=== PATIENT | female | born 1965 | race African-American/Black ===

== ENCOUNTER 2022-01-05 14:54 | Emergency (ER) | payer OTHER ==
[2022-01-05] MEDS ORDERED: SODIUM CHLORIDE 0.9% 1,000 ML IV STA ×3 (15:12→22:42)
--- NOTE | 2022-01-05 15:14 | ED Physician Documentation ---
PD HPI ALTERED MENTAL STATUS - Stated complaint Stated Complaint: WEAKNESS/CONFUSION - Chief complaint Chief Complaint: Neuro - History obtained from History obtained from: Patient, Family - Additional information Additional information: This is a 56-year-old woman who presents accompanied by her by private vehicle at the behest of her oncologist at the [place] [facility]. She has a history of stage IV pancreatic cancer. She was on about 10 months of chemotherapy in [place] and recently moved up here about 3 weeks ago to transfer care to the [facility]. She has a lot of abdominal and back pain, and her pain medication was recently increased. She had been taking long-acting morphine, 30 mg 4 times a day, now is taking 6 tablets a day with as needed oxycodone. This change took place about a week ago. Starting a few days ago she has been altered, clumsy, with difficulty walking and difficulty holding things. Has been presumed to this was related to the increase in morphine. Most of the history is from the as the patient is not very responsive with hard to hear mumbling answers. Review of Systems Unable to obtain: Confused PD PAST MEDICAL HISTORY - Allergies Allergies/Adverse Reactions: Allergies Allergy/AdvReac Type Severity Reaction Status Date / Time No Known Drug Allergies Allergy Verified 01/05/22 15:10 PD ED PE NORMAL - Vitals Vital signs reviewed: Yes (She is tachycardic) - General General: Other (She is alert and oriented to person and knows she is in the hospital but otherwise seems confused. Keeping her eyes closed and somnolent for the most part.) - HEENT HEENT: EOMI (She does have scleral icterus With midpoint pupils. They are reactive.), Other (Dry mucous membranes) - Neck Neck: Supple, no meningeal sign, No bony TTP - Cardiac Cardiac: No murmur, Other (Tachycardic but regular without murmur) - Respiratory Respiratory: No respiratory distress, Clear bilaterally - Abdomen Abdomen: Normal bowel sounds, Soft, Other (Quite tender especially in the upper abdomen without surgical signs) - Back Back: No CVA TTP, No spinal TTP - Derm Derm: Normal color, Warm and dry - Neuro Neuro: Other (She is able to follow commands in all 4 extremities but her strength is poor. It all seems symmetric though. She is not strong enough to check [id number] testing.) Eye Opening: To Voice Motor: Obeys Commands Verbal: Confused GCS Score: 13 Results - Vitals Vitals: Vital Signs - 24 hr 01/05/22 01/05/22 01/05/22 15:05 15:32 16:03 Temperature 37.2 C 38.1 C H Heart Rate 125 H 125 H 116 H Respiratory 20 20 16 Rate Blood Pressure 128/67 131/65 H 131/65 H O2 Saturation 95 95 98 01/05/22 01/05/22 01/05/22 16:30 17:00 17:30 Temperature 38.5 C H Heart Rate 111 H 115 H 112 H Respiratory 16 20 19 Rate Blood Pressure 115/60 117/64 120/106 H O2 Saturation 96 97 97 01/05/22 01/05/22 01/05/22 17:55 18:30 19:00 Temperature 37.6 C Heart Rate 101 H 100 102 H Respiratory 17 17 16 Rate Blood Pressure 116/81 H 102/61 101/71 O2 Saturation 97 96 97 01/05/22 01/05/22 01/05/22 20:12 21:58 22:51 Temperature Heart Rate 95 85 81 Respiratory 16 15 12 Rate Blood Pressure 93/61 82/72 L 91/56 L O2 Saturation 97 95 94 01/05/22 23:44 Temperature Heart Rate 82 Respiratory 18 Rate Blood Pressure 118/75 O2 Saturation 95 Oxygen O2 Source Room air - EKG (time done) 1535 Rate: Rate (enter#) (119) Rhythm: Sinus tachycardia [place]: Normal Intervals: Normal [place] QRS: LVH Ischemia: Non specific changes. No: ST elevation c/w ischemia - Labs Labs: Microbiology 01/05/22 16:46 Blood Culture - Preliminary Blood 01/05/22 15:21 Blood Culture (PCR) - Final Blood - Right Port 01/05/22 15:21 Blood Culture - Preliminary Blood - Right Port Laboratory Tests 01/05/22 01/05/22 01/05/22 15:21 15:21 15:21 WBC 15.5 H RBC 2.96 L Hgb 8.2 L Hct 24.7 L MCV 83.4 MCH 27.7 MCHC 33.2 RDW 16.4 H Plt Count 102 L MPV 11.3 H Neut # (Auto) Not Reportable Lymph # (Auto) Not Reportable [place] # (Auto) Not Reportable Eos # (Auto) Not Reportable Baso # (Auto) Not Reportable Absolute Nucleated RBC Not Reportable Total Counted 100 Band Neuts % (Manual) 13 H Abnorm Lymph % (Manual) 0 Metamyelocytes % 1 H Nucleated RBC % Not Reportable Neutrophils # (Manual) 14.1 H Lymphocytes # (Manual) 0.6 L Monocytes # (Manual) 0.6 Eosinophils # (Manual) 0.0 Basophils # (Manual) 0.0 Differential Comment MANUAL DIFFERENTIAL Manual Slide Review Indicated Platelet Estimate DECREASED (<130,000) Platelet Morphology NORMAL APPEARANCE RBC Morph Micro Appear 1+ HYPOCHROMASIA PT 15.0 H INR 1.4 H VBG pH VBG pCO2 VBG pO2 VBG HCO3 VBG Total CO2 VBG O2 Saturation VBG Base Excess Sodium 136 Potassium 3.1 L Chloride 100 L Carbon Dioxide 22 Anion Gap 14.0 H BUN 27 H Creatinine 0.7 Estimated GFR (MDRD) 104 Glucose 165 H Lactic Acid Calcium 8.6 Magnesium 1.8 Total Bilirubin 6.3 H AST 198 H ALT 136 H Alkaline Phosphatase 552 H Total Protein 6.5 L Albumin 2.3 L Globulin 4.2 Albumin/Globulin Ratio 0.5 L Lipase 15 L Urine Color Urine Clarity Urine pH Ur Specific [place] Urine Protein Urine Glucose (UA) Urine Ketones Urine Occult Blood Urine Nitrite Urine Bilirubin Urine Urobilinogen Ur Leukocyte Esterase Urine RBC Urine WBC Ur Squamous Epith Cells Urine Bacteria Ur Microscopic Review Urine Culture Comments Nasal Adenovirus (PCR) Nasal B. parapertussis DNA (PCR) Nasal Coronavir 229E PCR Nasal Coronavir HKU1 PCR Nasal Coronavir NL63 PCR Nasal Coronavir OC43 PCR Nasal Enterovir/Rhinovir PCR Nasal Influenza B PCR Nasal Influenza A PCR Nasal Parainfluen 1 PCR Nasal Parainfluen 2 PCR Nasal Parainfluen 3 PCR Nasal Parainfluen 4 PCR Nasal RSV (PCR) Nasal B.pertussis DNA PCR Nasal C.pneumoniae (PCR) [place] Human Metapneumo PCR Nasal M.pneumoniae (PCR) Nasal SARS-CoV-2 (PCR) 01/05/22 01/05/22 01/05/22 15:21 15:21 15:34 WBC RBC Hgb Hct MCV MCH MCHC RDW Plt Count MPV Neut # (Auto) Lymph # (Auto) [place] # (Auto) Eos # (Auto) Baso # (Auto) Absolute Nucleated RBC Total Counted Band Neuts % (Manual) Abnorm Lymph % (Manual) Metamyelocytes % Nucleated RBC % Neutrophils # (Manual) Lymphocytes # (Manual) Monocytes # (Manual) Eosinophils # (Manual) Basophils # (Manual) Differential Comment Manual Slide Review Platelet Estimate Platelet Morphology RBC Morph Micro Appear PT INR VBG pH 7.432 H VBG pCO2 34.2 L VBG pO2 80.7 H VBG HCO3 22.3 L VBG Total CO2 23.3 L VBG O2 Saturation 96.0 H VBG Base Excess -1.6 Sodium Potassium Chloride Carbon Dioxide Anion Gap BUN Creatinine Estimated GFR (MDRD) Glucose Lactic Acid 5.0 H* Calcium Magnesium Total Bilirubin AST ALT Alkaline Phosphatase Total Protein Albumin Globulin Albumin/Globulin Ratio Lipase Urine Color Urine Clarity Urine pH Ur Specific [place] Urine Protein Urine Glucose (UA) Urine Ketones Urine Occult Blood Urine Nitrite Urine Bilirubin Urine Urobilinogen Ur Leukocyte Esterase Urine RBC Urine WBC Ur Squamous Epith Cells Urine Bacteria Ur Microscopic Review Urine Culture Comments Nasal Adenovirus (PCR) NOT DETECTED Nasal B. parapertussis DNA (PCR) NOT DETECTED Nasal Coronavir 229E PCR NOT DETECTED Nasal Coronavir HKU1 PCR NOT DETECTED Nasal Coronavir NL63 PCR NOT DETECTED Nasal Coronavir OC43 PCR NOT DETECTED Nasal Enterovir/Rhinovir PCR NOT DETECTED Nasal Influenza B PCR NOT DETECTED Nasal Influenza A PCR NOT DETECTED Nasal Parainfluen 1 PCR NOT DETECTED Nasal Parainfluen 2 PCR NOT DETECTED Nasal Parainfluen 3 PCR NOT DETECTED Nasal Parainfluen 4 PCR NOT DETECTED Nasal RSV (PCR) NOT DETECTED Nasal B.pertussis DNA PCR NOT DETECTED Nasal C.pneumoniae (PCR) NOT DETECTED [place]to Human Metapneumo PCR NOT DETECTED Nasal M.pneumoniae (PCR) NOT DETECTED Nasal SARS-CoV-2 (PCR) NOT DETECTED 01/05/22 01/05/22 01/05/22 16:53 17:55 21:02 WBC RBC Hgb Hct MCV MCH MCHC RDW Plt Count MPV Neut # (Auto) Lymph # (Auto) [place] # (Auto) Eos # (Auto) Baso # (Auto) Absolute Nucleated RBC Total Counted Band Neuts % (Manual) Abnorm Lymph % (Manual) Metamyelocytes % Nucleated RBC % Neutrophils # (Manual) Lymphocytes # (Manual) Monocytes # (Manual) Eosinophils # (Manual) Basophils # (Manual) Differential Comment Manual Slide Review Platelet Estimate Platelet Morphology RBC Morph Micro Appear PT INR VBG pH VBG pCO2 VBG pO2 VBG HCO3 VBG Total CO2 VBG O2 Saturation VBG Base Excess Sodium Potassium Chloride Carbon Dioxide Anion Gap BUN Creatinine Estimated GFR (MDRD) Glucose Lactic Acid 5.0 H* 1.7 Calcium Magnesium Total Bilirubin AST ALT Alkaline Phosphatase Total Protein Albumin Globulin Albumin/Globulin Ratio Lipase Urine Color BROWN Urine Clarity CLEAR Urine pH 6.0 Ur Specific [place] 1.020 Urine Protein 100 H Urine Glucose (UA) 100 H Urine Ketones NEGATIVE Urine Occult Blood NEGATIVE Urine Nitrite NEGATIVE Urine Bilirubin LARGE H Urine Urobilinogen 1 (NORMAL) Ur Leukocyte Esterase NEGATIVE Urine RBC None Seen Urine WBC 4-5 Ur Squamous Epith Cells RARE Squamous Urine Bacteria None Seen Ur Microscopic Review INDICATED Urine Culture Comments NOT INDICATED Nasal Adenovirus (PCR) Nasal B. parapertussis DNA (PCR) Nasal Coronavir 229E PCR Nasal Coronavir HKU1 PCR Nasal Coronavir NL63 PCR Nasal Coronavir OC43 PCR Nasal Enterovir/Rhinovir PCR Nasal Influenza B PCR Nasal Influenza A PCR Nasal Parainfluen 1 PCR Nasal Parainfluen 2 PCR Nasal Parainfluen 3 PCR Nasal Parainfluen 4 PCR Nasal RSV (PCR) Nasal B.pertussis DNA PCR Nasal C.pneumoniae (PCR) [place] Human Metapneumo PCR Nasal M.pneumoniae (PCR) Nasal SARS-CoV-2 (PCR) - Rads (name of study) CT A/P Radiology: EMP read contemporaneously (Pancreatic carcinoma associated with pancreatic ductal dilatation. Opacification of the biliary stent associated p intrahepatic biliary ductal dilatation. Multiple hepatic mets. 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 Gallbladder wall thickening, possibly indicating cholecystitis.) Ct Head Radiology: EMP read contemporaneously (NAD) 1v CXR Radiology: EMP read contemporaneously (NAD) PD MEDICAL DECISION MAKING - ED course ED course: 56-year-old woman presents with confusion in the setting of known stage IV pancreatic cancer. She is quite confused here and tachycardic with a borderline high temp. Asked the nurse to recheck this and she was documented to be febrile. She also has an elevated white count at 15,000 and a high lactate at 5. She was administered broad-spectrum antibiotics after blood cultures with cefepime, Flagyl, and vancomycin as well as greater than 30 mL/kg of crystalloid, 1 L each of saline and lactated Ringer's. Lab work shows elevated liver enzymes with an obstructive pattern. was not aware of previous liver enzymes but said that her previous bilirubin had been as high as 15, but not sure what it was after the stent placement. This is concerning for stent obstruction. And therefore the entire picture is concerning for a sending cholangitis. I had a long discussion with the about goals of care, he understands that his 's prognosis is terminal. That said most recent discussions with her focus on prolongation of life. He is receptive to conversations about palliative versus curative care though. Spoke with Dr. Urbano Boyer, GI cancer attending at 8:56 PM the [facility]. He does recommend transfer, and they are working on a bed. - Critical Care Time(min): 45 Time Includes: Direct patient care, Review records, Reassess patient, Document care, Coordinate care, Medical consult, Family consult for tx dec Data interpretation: Labs, Pulse ox, ABG Procedures included in critical care time: Peripheral IV Procedures excluded from critical care time: EKG Departure - Departure Disposition: 02 Transfer Acute Care Hosp Clinical Impression: Ascending cholangitis Pancreatic cancer Qualifiers: Pancreatic malignancy location: unspecified Qualified Code(s): C25.9 - Malignant neoplasm of pancreas, unspecified Biliary stent obstruction Qualifiers: Encounter type: initial encounter Qualified Code(s): T85.590A - Other mechanical complication of bile duct prosthesis, initial encounter Condition: Stable Discharge Date/Time: 01/05/22 23:58
[2022-01-05 15:33] LABS: BASOPHILS % (AUTO) 0.5 %; EOSINOPHILS % (AUTO) 0.1 %; HCT - HEMATOCRIT 24.7 % (37.0-47.0); HGB - HEMOGLOBIN 8.2 g/dL (12.0-16.0); LYMPHOCYTES % (AUTO) 2.6 %; MEAN CORPUSCULAR HEMOGLOBIN 27.7 pg (27.0-31.0); MEAN CORPUSCULAR HGB CONC 33.2 g/dL (32.0-36.0); MEAN CORPUSCULAR VOLUME 83.4 fL (81.0-99.0); MEAN PLATELET VOLUME 11.3 fL (7.9-10.8); MONOCYTES % (AUTO) 1.9 %; NEUTROPHILS % (AUTO) 91.4 %; PLT - PLATELET COUNT 102 10^3/uL (130-450); RED BLOOD COUNT 2.96 10^6/uL (4.20-5.40); RED CELL DISTRIBUTION WIDTH 16.4 % (12.0-15.0); WHITE BLOOD COUNT 15.5 x10^3/uL (4.8-10.8)
[2022-01-05 15:34] LABS: VBG PH 7.432 (7.31-7.41)
[2022-01-05 15:35] LABS: VBG BASE EXCESS -1.6 mmol/L (-2 - +2); VBG HCO3 22.3 mmol/L (23-28); VBG PCO2 34.2 mmHg (41-51); VBG PO2 80.7 mmHg (25-47); VBG TOTAL CO2 23.3 mmol/L (24-29)
[2022-01-05 15:39] LABS: INR 1.4 (0.8-1.2)
--- NOTE | 2022-01-05 15:41 | XRAY Report ---
PROCEDURE: Chest 1 View X-Ray INDICATIONS: altered TECHNIQUE: One view of the chest was acquired. COMPARISON: None FINDINGS: Surgical changes and devices: Right chest wall belen catheter is present, tip of which is in the mid SVC. Lungs and pleura: No pleural effusions or pneumothorax. Mild bilateral perihilar reticulonodular [place]. Mediastinum: Mediastinal contours appear normal. Heart size is normal. Bones and chest wall: No suspicious bony lesions. Overlying soft tissues appear unremarkable. IMPRESSION: Mild atypical pneumonia. Reviewed by: Evelin Arambula MD on 01/05/2022 3:40 PM PDT Approved by: Evelin Arambula MD on 01/05/2022 3:40 PM PDT Station ID: [id number]
[2022-01-05 15:50] LABS: ALBUMIN 2.3 g/dL (3.2-5.5); ALBUMIN/GLOBULIN RATIO 0.5 (1.0-2.2); BILIRUBIN,TOTAL 6.3 mg/dL (0.2-1.0); CALCIUM 8.6 mg/dL (8.5-10.3); CREATININE 0.7 mg/dL (0.4-1.0); MAGNESIUM 1.8 mg/dL (1.7-2.8); POTASSIUM 3.1 mmol/L (3.5-5.0); TOTAL PROTEIN 6.5 g/dL (6.7-8.2)
[2022-01-05 15:55] LABS: SLIDE REVIEW? Indicated
[2022-01-05 15:56] LABS: ABNORMAL LYMPHS % (MANUAL) 0 %
[2022-01-05] MEDS ORDERED: VANCOMYCIN INJ 1 GM in SODIUM CHLORIDE 0.9% 500 ML IV STA (16:05)
[2022-01-05] MEDS ORDERED: metroNIDAZOLE 500 MG/100 ML 500 MG/100 ML BAG IV STA (16:05)
[2022-01-05] MEDS ORDERED: CEFEPIME 2 GM in SODIUM CHLORIDE 0.9% MINIBAG 100 ML IV STA (16:05)
[2022-01-05] MEDS ORDERED: LACTATED RINGERS 1,000 ML IV STA (16:06)
[2022-01-05] MEDS ORDERED: VANCOMYCIN INJ 1 GM in SODIUM CHLORIDE 0.9% 250 ML IV ONE (16:15)
[2022-01-05 16:38] LABS: B. PARAPERTUSSIS- RESP PCR PAN NOT DETECTED; B. PERTUSSIS- RESP PCR PANEL NOT DETECTED; C. PNEUMONIAE- RESP PCR PANEL NOT DETECTED; CORONAVIRUS 229E-RESP PCR NOT DETECTED; CORONAVIRUS HKU1-RESP PCR NOT DETECTED; CORONAVIRUS NL63-RESP PCR NOT DETECTED; CORONAVIRUS OC43-RESP PCR NOT DETECTED; HUMAN METAPNEUMOVIRUS NOT DETECTED; INFLUENZA A- RESP PCR PANEL NOT DETECTED; INFLUENZA B - RESP PCR PANEL NOT DETECTED; M. PNEUMONIAE- RESP PCR PANEL NOT DETECTED; PARAINFLUENZA VIRUS 1 NOT DETECTED; PARAINFLUENZA VIRUS 2 NOT DETECTED; PARAINFLUENZA VIRUS 3 NOT DETECTED; PARAINFLUENZA VIRUS 4 NOT DETECTED; RHINOVIRUS/ENTEROVIRUS NOT DETECTED; RSV- RESP PCR PANEL NOT DETECTED; SARS-CoV-2 -RESP PCR PANEL NOT DETECTED
[2022-01-05] MEDS ORDERED: POTASSIUM CHLORIDE 20 MEQ TABLET PO STA (16:42)
--- NOTE | 2022-01-05 16:46 | CT Report ---
PROCEDURE: HEAD WO INDICATIONS: altered TECHNIQUE: Noncontrast 4.5 mm thick angled axial sections acquired from the foramen magnum to the vertex. For r adiation dose reduction, the following was used: automated exposure control, adjustment of mA and/or kV according to patient size. COMPARISON: None. FINDINGS: Image quality: Excellent. CSF spaces: Basal cisterns are patent. No extra-axial fluid collections. Ventricles are normal in size and shape. Brain: No midline shift. No intracranial masses or hemorrhage. Vogt-white matter interface is norm al. Skull and face: Calvarium and visualized facial bones are intact, without suspicious lesions. Sinuses: Visualized sinuses and mastoids are clear. IMPRESSION: No acute intracranial abnormality. Reviewed by: Evelin Arambula MD on 01/05/2022 4:45 PM PDT Approved by: Evelin Arambula MD on 01/05/2022 4:45 PM PDT Station ID: [id number]
--- NOTE | 2022-01-05 16:49 | CT Report ---
PROCEDURE: Abdomen/Pelvis W INDICATIONS: AMS, pancreatic CA, jaundice CONTRAST: IV CONTRAST: Optiray 320 ml: 100 PO CONTRAST: *NO PO CONTRAST TECHNIQUE: After the administration of IV contrast, 5 mm thick sections acquired from the diaphragms to the symp hysis. 5 mm thick coronal and sagittal reformats were acquired. For radiation dose reduction, the f ollowing was used: automated exposure control, adjustment of mA and/or kV according to patient size. COMPARISON: None. FINDINGS: Image quality: Excellent. ABDOMEN: Lung bases: Lung bases are clear. Heart size is normal. Solid organs: Multiple hypodense masses within the liver parenchyma are present, largest of which is in the right hepatic dome posteriorly measuring roughly 54 mm. Gallbladder is mildly distended and de monstrates moderate wall thickening. There is moderate intrahepatic biliary ductal dilatation. Common bile duct stent is present which demonstrates opacification of its lumen. There is a pancreatic head /neck junction mass measuring roughly 58 mm, with severe pancreatic tail atrophy and severe pancreati c ductal dilatation measuring roughly 25 mm in diameter. The pancreatic mass encases and occludes the main portal vein. No adrenal nodules. Kidneys demonstrate normal size and enhancement, without hydr onephrosis. Peritoneum and bowel: Bowel loops demonstrate normal wall thickness and caliber. No free fluid or a ir. Nodes and vessels: No retroperitoneal or mesenteric adenopathy by size criteria. Aorta and inferior vena cava are normal in size. Miscellaneous: No ventral hernias. PELVIS: Genitourinary: Bladder wall thickness is normal. Miscellaneous: No inguinal hernias or adenopathy. Bones: No suspicious bony lesions. No vertebral body compression fractures. IMPRESSION: 1. Pancreatic carcinoma associated with pancreatic ductal dilatation. 2. Opacification of the biliary stent associated with intrahepatic biliary ductal dilatation. 3. Multiple hepatic metastases. 4. 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 5. Gallbladder wall thickening, possibly indicating cholecystitis. Ultrasound may be helpful for furt her assessment. Reviewed by: Evelin Arambula MD on 01/05/2022 4:48 PM PDT Approved by: Evelin Arambula MD on 01/05/2022 4:48 PM PDT Station ID: [id number]
[2022-01-05 17:03] LABS: GLUCOSE, URINE (UA) 100 mg/dL (NEGATIVE); KETONES,URINE (UA) NEGATIVE (NEGATIVE); LEUKOCYTE ESTERASE, URINE NEGATIVE (NEGATIVE); NITRITE,URINE NEGATIVE (NEGATIVE); OCCULT BLOOD,URINE NEGATIVE (NEGATIVE); PROTEIN,URINE 100 mg/dL (NEGATIVE); UROBILINOGEN,URINE 1 (NORMAL) E.U./dL (NORMAL)
[2022-01-05 17:09] LABS: BILIRUBIN,URINE LARGE (NEGATIVE); CLARITY,URINE CLEAR (CLEAR); ICTOTEST,URINE POSITIVE
[2022-01-05 17:10] LABS: BACTERIA,URINE None Seen /HPF (None Seen); RBC,URINE None Seen /HPF (0-5); SQUAMOUS EPITHELIAL CELL,UR RARE Squamous (<= Few)
[2022-01-05 17:23] LABS: BAND NEUTROPHILS % (MANUAL) 13 %; LYMPHOCYTES # (MANUAL) 0.6 10^3/uL (1.5-3.5); LYMPHOCYTES % (MANUAL) 4 %; METAMYELOCYTES % (MANUAL) 1 %; MONOCYTES # (MANUAL) 0.6 10^3/uL (0.0-1.0); NEUTROPHILS # (MANUAL) 14.1 10^3/uL (1.5-6.6)
[2022-01-05 17:24] LABS: DIFFERENTIAL COMMENT MANUAL DIFFERENTIAL; PLATELET ESTIMATE, MANUAL DECREASED (<130,000) (NORMAL); PLATELET MORPHOLOGY NORMAL APPEARANCE (NORMAL)
[2022-01-05] MEDS ORDERED: oxyCODONE 5 MG TABLET PO STA (17:24)
[2022-01-05] MEDS ORDERED: IBUPROFEN 800 MG TABLET PO STA (17:24)
[2022-01-05] MEDS ORDERED: MORPHINE ER 15 MG TABLET PO STA (17:24)
[2022-01-05] MEDS ORDERED: CEFEPIME 2 GM in SODIUM CHLORIDE 0.9% MINIBAG 100 ML IV SCH (18:00)
[2022-01-05] MEDS ORDERED: metroNIDAZOLE 500 MG/100 ML 500 MG/100 ML BAG IV SCH (18:00)
[2022-01-05] MEDS ORDERED: MORPHINE 2 MG/ML CARPUJECT IVP STA (23:25)
[2022-01-05 23:45] VITALS: BP 118/75
[2022-01-06] MEDS ORDERED: CEFEPIME 2 GM in SODIUM CHLORIDE 0.9% MINIBAG 100 ML IV SCH ×2
[2022-01-06] MEDS ORDERED: metroNIDAZOLE 500 MG/100 ML 500 MG/100 ML BAG IV SCH
== END 2022-01-05 23:58 | disposition short-term general hospital (02) ==
LOC: ED 14:54
DX: C25.9 Malignant neoplasm of pancreas, unspecified (principal); Z79.891 Long term (current) use of opiate analgesic; T85.590A Other mechanical complication of bile duct prosthesis, initial encounter; Z20.822 Contact with and (suspected) exposure to COVID-19
CPT/HCPCS: 36415; 70450; 71045; 74177; 80053; 81001; 82803; 83605; 83690; 83735; 85025; 85610; 87040; 87077; 87150; 87181; 87633; 93005; 96361; 96365; 96366; 96368; 96375; 99285; 99291; A9270; J3370; J7120; Q9967; 81003; 87086

== ENCOUNTER 2022-01-05 23:43 | Outpatient (CLI) | payer OTHER | END 2022-01-05 23:44 | disposition short-term general hospital (02) | LOC: EMS 23:43 | PROVIDERS: ATTEND Emergency Medicine | DX: K83.09 Other cholangitis (principal) | CPT/HCPCS: A0425; A0428 ==

== ENCOUNTER 2022-04-06 10:47 | Outpatient (CLI) | payer OTHER ==
[2022-04-06 12:46] LABS: INR 1.3 (0.8-1.2)
[2022-04-06 12:53] LABS: PARTIAL THROMBOPLASTIN TIME 28.3 secs (24.9-33.3)
[2022-04-06] MEDS ORDERED: LIDOCAINE-MPF 1% 5 ML VIAL ONE (13:45)
[2022-04-06] MEDS ORDERED: LIDOCAINE-MPF 1% 5 ML VIAL TD ONE (18:32)
--- NOTE | 2022-04-06 18:34 | Ultrasound Report ---
PROCEDURE: Duplex Ext Veins Left INDICATIONS: LEFT LEG EDEMA TECHNIQUE: Real-time imaging, as well as color and pulse Doppler interrogation, were performed of the lower extr emity deep veins from the inguinal ligament to the popliteal fossa. COMPARISON: None. FINDINGS: Extensive acute mixed linear and partially occlusive deep venous thrombosis within the comm on femoral vein, deep femoral veins, popliteal vein, gastrocnemius vein, and the proximal peroneal ve in. IMPRESSION: Extensive deep venous thrombosis which is fully occlusive in the common femoral vein and the popliteal vein, partially occlusive in the superficial femoral vein. Reviewed by: Fredi Ca MD on 04/06/2022 5:33 PM [facility] Approved by: Fredi Ca MD on 04/06/2022 5:33 PM [facility] Station ID: [id number]
--- NOTE | 2022-04-07 11:06 | Ultrasound Report ---
PROCEDURE: Abdominal Paracentesis INDICATIONS: PANCREATIC CA TECHNIQUE: The indications, alternatives, benefits, risks, and complications of the procedure were explained to the patient. Written informed consent was obtained and placed in the chart. The abdomen and pelvis were examined sonographically, and an appropriate site was chosen for paracentesis. The skin was pre pared and draped in the usual sterile fashion, and 1% lidocaine was infiltrated from the skin down th rough the peritoneal surface. A 19-gauge catheter-covered needle was then introduced into the perito cira space, the catheter was advanced and the needle was withdrawn, and thereafter peritoneal fluid w as withdrawn. The catheter was then removed and a dressing was applied. The fluid was discarded if the clinician did not order diagnostic testing of the fluid. COMPARISON: None FINDINGS: Access site: Left lower quadrant Needle: One-Step centesis catheter with introducer needle. Fluid volume and description: 3.7 cm straw-colored ascites fluid Fluid sent for diagnostic testing: No Medications: 1% lidocaine for local anaesthesia. Complications: None. IMPRESSION: Successful ultrasound-guided paracentesis. Reviewed by: Marilu Gaytan MD on 04/07/2022 11:05 AM PST Approved by: Marilu Gaytan MD on 04/07/2022 11:05 AM PST Station ID: [id number]
== END 2022-04-06 10:48 | disposition home or self-care (01) ==
LOC: DI 10:47
PROVIDERS: ATTEND Family Medicine
DX: C25.9 Malignant neoplasm of pancreas, unspecified (principal); I82.412 Acute embolism and thrombosis of left femoral vein; I82.432 Acute embolism and thrombosis of left popliteal vein
CPT/HCPCS: 36415; 49083; 85049; 85610; 85730